=== PATIENT | female | born 1945 | race Caucasian/White ===

== ENCOUNTER 2019-09-23 13:54 | Emergency (ER) | payer OTHER, MEDICARE ==
[~2019-09-23] VITALS: Ht 157.5 cm; Wt 65.9 kg
[2019-09-23 13:55] VITALS: BP 123/70
[2019-09-23] MEDS ORDERED: LIDOcaine 1% W/epiNEPHrine 1:200,000 10ml vial IJ ONE (14:30)
[2019-09-23 15:37] LABS: CLARITY,URINE CLEAR (Clear); COLOR,URINE YELLOW (Yellow); GLUCOSE, URINE NEGATIVE (Neg); KETONES,URINE NEGATIVE (Neg); LEUKOCYTE ESTERASE ,URINE NEGATIVE (Neg); NITRITES, URINE NEGATIVE (Neg); OCCULT BLOOD,URINE NEGATIVE (Neg); PH,URINE 5.5 (4.8-8.0); PROTEIN,URINE NEGATIVE (Neg); UROBILINOGEN,URINE 0.2 E.U/dL (0.2-1.0)
[2019-09-23 15:39] LABS: UA COLLECTION TYPE CLN CATCH MIDSTREAM
[2019-09-23] MEDS ORDERED: ALBU8.5H8 INH (15:48)
[2019-09-23] MEDS ORDERED: PRED20TA PO (15:48)
[2019-09-23] MEDS ORDERED: TRAM50TA2 PO (15:48)
== END 2019-09-23 15:54 | disposition home or self-care (01) ==
LOC: ER 13:55
DX: J20.9 Acute bronchitis, unspecified (principal); R30.0 Dysuria; R05 Cough; R07.89 Other chest pain; G89.29 Other chronic pain; Z88.5 Allergy status to narcotic agent; Z79.899 Other long term (current) drug therapy
CPT/HCPCS: 71046; 81003; 99284